=== PATIENT | female | born 2000 | race Caucasian/White ===

== ENCOUNTER 2022-08-28 14:17 | Emergency (ER) | payer OTHER, SELFPAY ==
[2022-08-28 14:17] VITALS: BP 135/92; PULSE 78; RESP 16; TEMP 36.8; O2SAT 99
--- NOTE | 2022-08-28 14:25 | ED.DENTAL ---
HPI - Dental/Oral General Chief complaint: Dental/Oral Stated complaint: right sided facial pain Time Seen by Provider: 08/28/22 14:24 Source: patient Mode of arrival: ambulatory Limitations: no limitations History of Present Illness HPI Narrative: 22-year-old female presents to the ER with a 3 day history of -- right lower jaw pain. Patient has had extraction of all 3rd molars. No fever or chills. MD Complaint: tooth pain Onset (ago): day(s) ( Started 3 days ago) Duration: constant Relieving factors: nothing Exacerbating factors: chewing Related Data Home Medications Medication Instructions Recorded Confirmed etonogestrel 68 mg subdermal 1 implant subdermal ONCE 08/28/22 08/28/22 implant (Nexplanon) Allergies Allergy/AdvReac Type Severity Reaction Status Date / Time No Known Allergies Allergy Verified 08/28/22 14:25 Review of Systems Review of Systems: All systems reviewed & are unremarkable except as noted in HPI and below Constitutional: Constitutional: Reports as per HPI and Reports no additional constitutional complaints Eyes: Eyes: Reports as per HPI and Reports no additional eye complaints ENT: Reports system reviewed and no additional complaints, except as documented and Reports as per HPI Comments: right jaw pain in front of the trach was which is worse with chewing Cardiovascular: Cardiovascular: Reports as per HPI and Reports no additional cardiovascular complaints Respiratory: Respiratory: Reports as per HPI and Reports no additional respiratory complaints Gastrointestinal: Gastrointestinal: Reports as per HPI and Reports no additional gastrointestinal complaints Genitourinary: Genitourinary: Reports no additional female genitourinary complaints and Reports as per HPI Comments: she has a nexplanon in place Musculoskeletal: Musculoskeletal: Reports no additional musculoskeletal complaints and Reports as per HPI Integumentary/Breasts: Skin/Breast: Reports system reviewed and no additional complaints, except as docu and Reports as per HPI Neurologic: Reports system reviewed and no additional complaints, except as documented and Reports as per HPI Psychiatric: Psychiatric: Reports no additional psychiatric complaints and Reports as per HPI Endocrine: Endocrine: Reports no additional endocrine complaints and Reports as per HPI Hematologic/Lymphatic: Hematologic/Lymphatic: Reports no additional hematologic/lymphatic complaints and Reports as per HPI Allergic/Immunologic: Allergic/Immunologic: Reports no additional allergic/immunologic complaints Exam Const: General: healthy appearing and no acute distress Nutritional Appearance: well nourished Orientation/consciousness: patient oriented x3 Limitations: no limitations HENMT: Head: normal to inspection Ears: external ears normal Face/Nose/Sinus: Normal external nose present Face and sinus: normal facial exam Mouth: Yes Normal oral and palatal mucosa present Teeth and gingiva: dentition normal ( tenderness over the right TMJ which is worse with movement.) Throat: posterior oropharynx normal Eyes: Conjunctivae: conjunctivae normal Pupils: Equal, round and reactive pupils present EOM: EOMs intact bilaterally Direct Ophthalmoscopy: no photophobia Neck: Neck: normal visual inspection, no lymphadenopathy and no meningeal signs Chest: Chest palpation & inspection: normal inspection of the chest Resp: Effort & Inspection: normal respiratory effort Auscultation: clear to auscultation bilaterally Cardio: Rate: regular rate Rhythm: regular rhythm GI: GI Palp: Yes Soft to palpation Auscultation: normal bowel sounds Rectal Exam: normal sphincter tone Other: No tenderness/rigidity /rebound : General: Yes no CVA tenderness Back/Spine/Pelvis: Back: no CVA tenderness Skin: General skin exam: normal color Rashes: no rashes Wounds: no wounds Neuro: General: patient oriented x3, moves all extremities, no
[2022-08-28] MEDS: KETOROLAC 30 MG/ML VIAL (*BKC) IM (14:48)
== END 2022-08-28 14:55 | disposition home or self-care (01) ==
LOC: CHSED 14:53
PROVIDERS: Emergency Provider Internal Medicine Critical Care Medicine
DX: M26.621 Arthralgia of right temporomandibular joint (principal)
CPT/HCPCS: 96372; 99283; J1885

== ENCOUNTER 2023-07-19 16:01 | Emergency (ER) | payer OTHER, SELFPAY ==
[2023-07-19 16:04] VITALS: BP 130/86; PULSE 91; RESP 18; TEMP 36.3; O2SAT 97
--- NOTE | 2023-07-19 16:23 | ED.LOWEXIN ---
HPI - Extremity Injury (Lower) General Chief Complaint: Extremity Injury, Lower Stated Complaint: hip pain Time Seen by Provider: 07/19/23 16:04 Source: patient Mode of arrival: ambulatory Limitations: no limitations History of Present Illness HPI Narrative: 22-year-old female presents to the ER with a 1 day history of -- left inguinal pain which came on acutely. the patient works for [employer] 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 Today while doing diet she developed acute left inguinal pain. patient felt a pop in her left hip. No radiation of the pain. No history of trauma. Onset (ago): hour(s) ( started 4 hours ago) Injury: Left: hip Place: work Severity: moderate Relieving factors: immobilization Exacerbating factors: movement Associated symptoms: snap/pop sensation Related Data Home Medications Medication Instructions Recorded Confirmed etonogestrel 68 mg subdermal 1 implant subdermal ONCE 08/28/22 07/19/23 implant (Nexplanon) Allergies Allergy/AdvReac Type Severity Reaction Status Date / Time No Known Allergies Allergy Verified 07/19/23 16:11 Review of Systems Review of Systems: All systems reviewed & are unremarkable except as noted in HPI and below Constitutional: Constitutional: Reports as per HPI and Reports no additional constitutional complaints Eyes: Eyes: Reports as per HPI and Reports no additional eye complaints ENT: Reports system reviewed and no additional complaints, except as documented and Reports as per HPI Cardiovascular: Cardiovascular: Reports as per HPI and Reports no additional cardiovascular complaints Respiratory: Respiratory: Reports as per HPI and Reports no additional respiratory complaints Gastrointestinal: Gastrointestinal: Reports as per HPI and Reports no additional gastrointestinal complaints Genitourinary: Genitourinary: Reports no additional female genitourinary complaints and Reports as per HPI Comments: Patient has a Nexplanon Musculoskeletal: Musculoskeletal: Reports no additional musculoskeletal complaints and Reports as per HPI Comments: left groin pain Integumentary/Breasts: Skin/Breast: Reports system reviewed and no additional complaints, except as docu and Reports as per HPI Neurologic: Reports system reviewed and no additional complaints, except as documented and Reports as per HPI Psychiatric: Psychiatric: Reports no additional psychiatric complaints and Reports as per HPI Endocrine: Endocrine: Reports no additional endocrine complaints and Reports as per HPI Hematologic/Lymphatic: Hematologic/Lymphatic: Reports no additional hematologic/lymphatic complaints and Reports as per HPI Allergic/Immunologic: Allergic/Immunologic: Reports no additional allergic/immunologic complaints and Reports as per HPI Exam Const: General: healthy appearing and no acute distress Nutritional Appearance: well nourished Orientation/consciousness: patient oriented x3 Limitations: no limitations HENMT: Head: normal to inspection Ears: external ears normal Face/Nose/Sinus: Normal external nose present Face and sinus: normal facial exam Mouth: Yes Normal oral and palatal mucosa present Throat: posterior oropharynx normal Eyes: Conjunctivae: conjunctivae normal Pupils: Equal, round and reactive pupils present EOM: EOMs intact bilaterally Direct Ophthalmoscopy: no photophobia Neck: Neck: normal visual inspection, no lymphadenopathy and no meningeal signs Chest: Chest palpation & inspection: normal inspection of the chest Resp: Effort & Inspection: normal respiratory effort Auscultation: clear to auscultation bilaterally Cardio: Rate: regular rate Rhythm: regular rhythm GI: GI Palp: Yes Soft to palpation Auscultation: normal bowel sounds Other: no tenderness/rigidity / rebound. : General: Yes no CVA tenderness Back/Spine/Pelvis: Back: no CVA tenderness Skin: General skin exam: normal color Rashes: no rashes
[2023-07-19] MEDS: KETOROLAC 30 MG/ML VIAL (*BKC) IM (17:04)
[2023-07-19 17:08] LABS: Pregnancy On Board Control Positive; Urine Pregnancy Test Negative
[2023-07-19 17:21] VITALS: BP 134/84; PULSE 92; RESP 20; TEMP 36.7; O2SAT 98
== END 2023-07-19 17:21 | disposition home or self-care (01) ==
PROVIDERS: Emergency Provider Internal Medicine Critical Care Medicine
DX: R10.30 Lower abdominal pain, unspecified (principal); M25.552 Pain in left hip
CPT/HCPCS: 81025; 96372; 99283; J1885

== ENCOUNTER 2023-09-20 11:53 | Emergency (ER) | payer OTHER, SELFPAY ==
--- NOTE | 2023-09-20 12:00 | ED.GENADULT ---
HPI - General Adult General Chief complaint: Urogenital-Female Stated complaint: vaginal discharge Time Seen by Provider: 09/20/23 12:00 Source: patient Mode of arrival: ambulatory Limitations: no limitations History of Present Illness HPI narrative: 23-year-old female patient presents to the [facility] with complaints of vaginal discharge for the past couple of days. Patient states that the odor smells very fishy . Patient states that she did have a little bit of discharge that started before she came onto her period last week. Patient states she had a normal period last week and now that she is off her. Notices the yellowish creamy discharge with a significant odor. Patient states she has the Nexplanon in and has no concerns of . Patient states she is not sexually active at this time and has no concerns for STDs. Patient denies any abdominal pain, nausea, vomiting or diarrhea. Denies any low back pain. Denies any pain with urination. Related Data Home Medications Medication Instructions Recorded Confirmed etonogestrel 68 mg subdermal 1 implant subdermal ONCE 08/28/22 09/20/23 implant (Nexplanon) Allergies Allergy/AdvReac Type Severity Reaction Status Date / Time No Known Allergies Allergy Verified 09/20/23 12:02 Review of Systems Review of Systems: CONSTITUTIONAL: Denies fever, chills, or sweats. EYES: Denies visual changes, redness, or discharge. ENT: Denies rhinorrhea, congestion, sore throat, or otalgia. CARDIOVASCULAR: Denies chest pain, palpitations, or edema. RESPIRATORY: Denies cough or dyspnea. GASTROINTESTINAL: Denies abdominal pain, nausea, vomiting, or diarrhea. GENITOURINARY: Denies dysuria or hematuria. Positive yellow milky discharge with odor SKIN: Denies rash or itching. MUSCULOSKELETAL: Denies back pain, joint pain, or myalgia. NEUROLOGIC: Denies headache, numbness, or weakness. PSYCHIATRIC: Denies anxiety or depression. [facility] Past Medical History Medical History (Updated 09/20/23 @ 12:28 by PHYLLIS Michael) No significant past medical history Comments At the time of my signature I agree with nursing past medical history, surgical, social, and family history. There is no relevant family history pertinent to the presenting complaint. Exam Narrative: GENERAL: Well-appearing, well-nourished, and in no acute distress. HEAD: Normocephalic, atraumatic. EYES: PERRLA and EOMI. ENT: Nares clear, no rhinorrhea or epistaxis. Mucous membranes moist. NECK: Supple. No lymphadenopathy CHEST: Clear to auscultation. No respiratory distress. HEART: Regular rate and rhythm. No murmur heard. Normal peripheral pulses. ABDOMEN: Soft, nontender, nondistended, normal active bowel sounds. no CVA tenderness on percussion EXTREMITIES: Normal range of motion. No edema. SKIN: Warm, dry, no rash. NEURO: No focal deficits. Alert and oriented x3. Course Course Level of Care: Express Care Visit Vital Signs Vital signs: Vital Signs Temperature 36.9 C 09/20/23 12:04 Pulse Rate 69 09/20/23 12:04 Respiratory Rate 16 09/20/23 12:04 Blood Pressure 136/91 H 09/20/23 12:04 Pulse Oximetry 100 09/20/23 12:04 Oxygen Delivery Room Air 09/20/23 12:04 Temperature 36.9 C 09/20/23 12:04 Pulse Rate 69 09/20/23 12:04 Respiratory Rate 16 09/20/23 12:04 Blood Pressure 136/91 H 09/20/23 12:04 Pulse Oximetry 100 09/20/23 12:04 Oxygen Delivery Room Air 09/20/23 12:04 vital signs reviewed Medical Decision Making MDM Narrative Medical decision making narrative: Patient has opted not to do a pelvic exam today. Discussed with patient we can go ahead and treat her for bacterial vaginosis which I highly suspect what this is. Discussed with patient that this medication is very powerful and most likely she may develop a yeast infection afterwards we will also provide her some fluconazole to take after she has completed the antibiotic. Discussed with shmuel
[2023-09-20 12:04] VITALS: BP 136/91; PULSE 69; RESP 16; TEMP 36.9; O2SAT 100
[2023-09-20 12:17] LABS: BEDSIDEPREGUCG Negative
[2023-09-20 12:18] LABS: EDUAAPPEAR Clear; EDUABILI Negative; EDUABLOOD Negative; EDUACOLOR1 Yellow; EDUAGLUCOSE Negative; EDUAKETONE 2+; EDUALEUKO Negative; EDUANITRATE Negative; EDUAPH 5.5; EDUAPROTEIN Negative; EDUAUROBILI 0.2
== END 2023-09-20 12:27 | disposition home or self-care (01) ==
PROVIDERS: Emergency Provider Nurse Practitioner Family
DX: N76.0 Acute vaginitis (principal)
CPT/HCPCS: 81003; 81025; 99213; G0463

== ENCOUNTER 2023-11-25 17:57 | Emergency (ER) | payer OTHER, SELFPAY ==
--- NOTE | 2023-11-25 18:03 | ED_ITS ---
HPI - General Adult General Chief complaint: Urogenital-Female Stated complaint: URINARY SX Time Seen by Provider: 11/25/23 18:03 Source: patient Mode of arrival: ambulatory Limitations: no limitations History of Present Illness HPI narrative: patient is a 23-year-old white female with a history of focal segmental glomerular sclerosis complains of urinary frequency urgency and feeling of incomplete emptying of her bladder for the past 2 weeks associated with white chunky discharge. Last menstrual period was 10 days ago. She had her Nexplanon removed a month ago and placed on oral contraceptive pills. At that time she was checked for STDs and . They are all negative. She has not had any intercourse since. She complains of low back pain mild for the last 3 days. She was switched to oral contraceptive pills because her periods were irregular for several months. Denies any fever chills shortness of breath cough runny nose sore throat rash or itching swelling or lumps or bumps problems eating or drinking walking talking seeing or hearing or any other complaints. She took some azo 1 time and did not turn her urine orange. Related Data Home Medications Medication Instructions Recorded Confirmed etonogestrel 68 mg subdermal 1 implant subdermal ONCE 08/28/22 11/25/23 implant (Nexplanon) Allergies Allergy/AdvReac Type Severity Reaction Status Date / Time No Known Allergies Allergy Verified 11/25/23 18:08 Review of Systems Review of Systems: All systems reviewed & are unremarkable except as noted in HPI and below PMFSH Past Medical History Medical History No significant past medical history Comments focal segmental glomerular sclerosis in remission Course Vital Signs Vital signs: Vital Signs Oxygen Delivery Room Air 11/25/23 18:00 Temperature 36.9 C 11/25/23 18:06 Pulse Rate 80 11/25/23 18:06 Respiratory Rate 18 11/25/23 18:06 Blood Pressure 126/97 H 11/25/23 18:06 Pulse Oximetry 97 11/25/23 18:06 Oxygen Delivery Room Air 11/25/23 18:06 Medical Decision Making MDM Narrative Medical decision making narrative: ? Patient placed in room: 3 ? History and physical was performed. Urine specific gravity 1.030 trace ketones +1 leukocyte esterase 3-5 rbc's 10-15 WBCs +2 bacteria Negative urine test Independent Historian: patient External Source Review: Differential Dx includes but not limited to: UTI cystitis vaginitis Medications were Reviewed: home meds reviewed Medications given: Cipro 500 p.o. Diflucan 150 mg Independently Interpreted by me: labs independently interpreted by me. Shared decision Making: evaluation was discussed with the patient all questions were asked and answered and patient agreed with the plan. She would take Cipro 250 twice a day for 3 days and Pyridium 200 mg with food for 3 days. She will return if she got worse or develops any new symptoms. Social Situation Impacting Patients Care: history of focal segmental glomerular sclerosis DISCHARGE DIAGNOSIS: Acute urinary tract infection DISPOSITION : discharge CONDITION AT DISCHARGE: stable Vital Signs Vital Signs: Vital Signs Oxygen Delivery Room Air 11/25/23 18:00 Temperature 36.9 C 11/25/23 18:06 Pulse Rate 80 11/25/23 18:06 Respiratory Rate 18 11/25/23 18:06 Blood Pressure 126/97 H 11/25/23 18:06 Pulse Oximetry 97 11/25/23 18:06 Oxygen Delivery Room Air 11/25/23 18:06 Lab Data Labs: Lab Results 11/25/23 Range/Units 18:04 Urine Color Light yellow (Yellow) Urine Appearance Cloudy A (Clear) Urine pH 5.5 (5.0-8.0) Ur Specific [place] >= 1.030 H (1.010-1.020) Urine Protein Negative (Negative) Urine Glucose (UA) Negative (Negative) Urine Ketones Trace H (Negative) Ur Blood (Man) Negative (Negative) Urine Nitrate Negative (Negative) Urine Bilirubin Negative (Negative) Urine Urobilinogen 0.2 (0.2-1.0) mg/dL Leukocyte Esterase Rfl 1+ H (Negative) NADER/UL Urine RBC 3-5 H (0-2) /hpf Urine WBC 10-15 H (0-3) /hpf Ur Squamous Epith Cells Few (Few) /hpf Urine Bacteria 2+ H (None) /hpf Urine Test Negative Discharge Plan Discharge Clinical Impression: Urinary tract infection Patient Disposition: Home, Self-Care Condition: Stable Instructions: Antibiotic Form Additional Instructions: Cipro 250 mg twice a day for 3 days. Pyridium 200 mg 3 times a day with food for 3 days. Take Tylenol and/or ibuprofen for pain. Return if you get worse or develops any new symptoms. Prescriptions: New ciprofloxacin HCl 250 mg tablet 250 mg PO Q12H 3 Days Qty: 6 0RF phenazopyridine [Pyridium] 200 mg tablet 200 mg PO TID Qty: 6 0RF No Action Nexplanon 68 mg Implant 1 implant SUBDERMAL ONCE Rx Instructions: as a single dose Follow-up/Referrals: UNKNOWN,DOCTOR [Primary Care Provider] - Time of Disposition: 19:02
[2023-11-25 18:06] VITALS: BP 126/97; PULSE 80; RESP 18; TEMP 36.9; O2SAT 97
[2023-11-25 18:11] LABS: Add Urine Microscopic? YES; Appearance Urine Cloudy (Clear); Bilirubin Urine Negative (Negative); Blood Urine Negative (Negative); Color Urine Light Yellow (Yellow); Glucose Urine UA Negative (Negative); Ketones Urine Trace (Negative); Leukocyte Esterase Ur 1+ LEU/UL (Negative); Nitrate Urine Negative (Negative); Protein Urine Negative (Negative); Specific Grav Ur >= 1.030 (1.010-1.020); Urobilinogen Urine 0.2 mg/dL (0.2-1.0); pH Urine 5.5 (5.0-8.0)
[2023-11-25 18:16] LABS: Bacteria Urine 2+ /hpf; Squamous Epithelial Cell Urine Few /hpf (Few)
[2023-11-25 18:17] LABS: Pregnancy On Board Control Positive; Urine Pregnancy Test Negative
[2023-11-25] MEDS: FLUCONAZOLE 150 MG TABLET PO (19:06)
[2023-11-25] MEDS: CIPROFLOXACIN 250 MG TABLET 500 MG PO (19:06)
[2023-11-25 19:22] VITALS: BP 137/83; PULSE 77; RESP 16; TEMP 36.9; O2SAT 99
--- NOTE | 2023-11-28 12:55 | PC.NURSE ---
FINAL URINE CULTURE RESULTS:POSITIVE FOR ESCHERICHIA COLI, PATIENT DISCHARGED ON CIPROFLOXACIN, CULTURE SUBSEPTALE, NO CHANGE IN TREATMENT NEEDED AT THIS TIME PER DR. GARRISON
== END 2023-11-25 19:22 | disposition home or self-care (01) ==
PROVIDERS: Emergency Provider Emergency Medicine
DX: N39.0 Urinary tract infection, site not specified (principal)
CPT/HCPCS: 81001; 81025; 87077; 87086; 87088; 87186; 99283; A9270